=== PATIENT | female | born 1980 | race Caucasian/White ===

== ENCOUNTER 2017-05-24 09:44 | Inpatient (IN) | payer MEDICARE, MEDICAID ==
[~2017-05-24] VITALS: Ht 147.3 cm; Wt 72.3 kg
[~2017-05-24 09:44] MED LIST: BUPIVACAINE/PF 0.5% ONE; CINA60TA PO; EPINEPHRINE 1 MG/ML, 1ML ONE; ESOM40CA PO; GABA-826 PO; HYDR2TAB29 PO; LANT1000 PO; METOPOROL PO; SEVE800T7 PO; TRAZ50TA18 PO; WARF5TAB7 PO; [UNRECOGNIZED DRUG - OTHER] PO; [UNRECOGNIZED DRUG - OTHER] PO; depoprovera; lidocaine cream; losartan PO; promethazine PO
[2017-05-24] MEDS ORDERED: HYDR2TAB29 PO (10:38)
[2017-05-24] MEDS ORDERED: SODIUM CHLORIDE 0.9% 1,000 ML IV SCH (10:45)
[2017-05-24 10:53] VITALS: BP 135/91
[2017-05-24] MEDS ORDERED: FENTANYL PF 250 MCG/5ML ONE (11:02)
[2017-05-24] MEDS ORDERED: MIDAZOLAM 1 MG/ML, 2ML ONE (11:02)
[2017-05-24] MEDS ORDERED: DEXAMETHASONE 4 MG/ML, 1ML ONE ×2 (11:03)
[2017-05-24] MEDS ORDERED: PROPOFOL 10 MG/ML, 20ML ONE (11:03)
[2017-05-24] MEDS ORDERED: SUCCINYLCHOLINE 20 MG/ML, 10ML ONE (11:03)
[2017-05-24] MEDS ORDERED: ONDANSETRON 2MG/ML, 2ML ONE (11:03)
[2017-05-24 11:38] LABS: HEMATOCRIT 36.6 % (34.6-47.8); HEMOGLOBIN 12.3 g/dL (11.7-16.4); WHITE BLOOD COUNT 5.1 x10^3/uL (3.4-10)
[2017-05-24 11:52] LABS: ASPARTATE AMINO TRANSFERASE 22 U/L (15-37); BLOOD UREA NITROGEN 21 mg/dL (7-18)
[2017-05-24] MEDS ORDERED: CEFAZOLIN 1,000 MG ONE ×2 (12:37)
[2017-05-24] MEDS ORDERED: FENTANYL PF 100 MCG/2ML IV PRN (13:00)
[2017-05-24] MEDS ORDERED: PROMETHAZINE 25 MG/ML, 1ML IV PRN (13:00)
[2017-05-24] MEDS ORDERED: LABETALOL 5MG/ML, 20ML ONE (13:29)
[2017-05-24] MEDS: HYDROmorphone 1 MG/ML, 1ML IV PRN ×4 (14:52→15:30)
[2017-05-24] MEDS ORDERED: HYDROmorphone 2 MG/ML, 1ML ONE (14:57)
[2017-05-24] MEDS ORDERED: DIPHENHYDRAMINE 50 MG/ML, 1ML ONE (15:43)
[2017-05-24] MEDS ORDERED: DIPHENHYDRAMINE 50 MG/ML, 1ML IVPush ONE (16:00)
[2017-05-24 16:50] VITALS: BP 116/77
[2017-05-24] MEDS ORDERED: HEPARIN 5,000 UNITS/ML, 1ML SQ SCH (18:30)
[2017-05-24] MEDS ORDERED: hydrALAzine 20 MG/ML, 1ML IV PRN (18:30)
[2017-05-24] MEDS ORDERED: HYDROmorphone 2MG TABLET PO PRN (19:00)
[2017-05-24 19:26] LABS: IOPTH BASELINE 968 pg/mL
[2017-05-24 19:30] LABS: SAMPLE 5 %DROP IOPTH 94 %
[2017-05-24 19:55] VITALS: BP 122/85
[2017-05-24] MEDS: SODIUM CHLORIDE FLUSH 10ML SYR IVF SCH (20:58)
[2017-05-24] MEDS: CALCIUM/VITAMIN D3 250-125 TABLET PO SCH (20:58)
[2017-05-24] MEDS: CALCITRIOL 0.5 MCG CAPSULE PO SCH (20:58)
[2017-05-24] MEDS ORDERED: GABAPENTIN 100 MG CAPSULE PO SCH (21:00)
[2017-05-25] VITALS: BP 142/88
[2017-05-25] MEDS ORDERED: HYDROmorphone 1 MG/ML, 1ML ONE (00:16)
[2017-05-25] MEDS: HYDROmorphone 1 MG/ML, 1ML IV PRN ×3 (00:24→14:36)
[2017-05-25 04:05] VITALS: BP 124/85
[2017-05-25 05:31] LABS: BLOOD UREA NITROGEN 44 mg/dL (7-18)
[2017-05-25 07:25] VITALS: BP 113/79
[2017-05-25] MEDS ORDERED: PANTOPROZOLE 40MG TABLET PO SCH (07:30)
[2017-05-25] MEDS ORDERED: HEPARIN 5,000 UNITS/ML, 1ML SQ SCH (09:00)
[2017-05-25] MEDS: CALCIUM/VITAMIN D3 250-125 TABLET PO SCH (09:18)
[2017-05-25] MEDS: SEVELAMER 800MG TABLET PO SCH ×2 (09:18→12:50)
[2017-05-25] MEDS: CALCITRIOL 0.5 MCG CAPSULE PO SCH (09:18)
[2017-05-25] MEDS: SODIUM CHLORIDE FLUSH 10ML SYR IVF SCH (09:19)
[2017-05-25] MEDS ORDERED: CALC-126 PO (15:24)
[2017-05-25] MEDS ORDERED: CALC0.5C2 PO (15:25)
[2017-05-25 15:33] VITALS: BP 126/89
== END 2017-05-25 15:43 | disposition home or self-care (01) | DRG 626 ==
LOC: OUT 09:44 → 4NOR 16:46 → OUT 17:24 → 4NOR 05-25 06:53
PROVIDERS: ADMIT Surgery; ATTEND Surgery
PROC: 0GBP0ZZ Excision of Left Inferior Parathyroid Gland, Open Approach (ICD-10-PCS; principal; 2017-05-24 12:00)
DX: D35.1 Benign neoplasm of parathyroid gland (principal); N25.81 Secondary hyperparathyroidism of renal origin
CPT/HCPCS: 36415; 80048; 80053; 82040; 82310; 83970; 84703; 85025; 85610; 85730; 88304; 88305; 88331; J0171; J0690; J1100; J1170; J2250; J2405; J2704; J3010; J3490; C1760; J0330; J1200; J7030

== ENCOUNTER → 2018-05-12 | Outpatient (CLI) | payer MEDICARE, MEDICAID ==
[~2018-05-12] MED LIST changes: -BUPIVACAINE/PF 0.5% ONE; +CALC-126 PO; +CALC0.5C2 PO; -EPINEPHRINE 1 MG/ML, 1ML ONE; +PREG75CA PO; +PROM12.55 PO; +TRAZ-136 PO; -TRAZ50TA18 PO; +VENL75TA2 PO; +WARF-36 PO; -WARF5TAB7 PO
[2018-05-12 15:42] LABS: PROTHROMBIN TIME 10.3 Seconds (9.6-11.5)
[2018-05-12 15:46] LABS: ALANINE AMINOTRANSFERASE 24 U/L (12-78); ALBUMIN 3.6 g/dL (3.4-5.0); ANION GAP 12 mmol/L (5-15); CALCIUM 7.4 mg/dL (8.5-10.1); CHLORIDE 102 mmol/L (98-107); CREATININE 7.55 mg/dL (0.55-1.02)
[2018-05-12 15:47] LABS: BASOPHILS # (AUTO) 0.03 x10^3/uL (0-0.1); BASOPHILS % (AUTO) 1 % (0-1); EOSINOPHILS # (AUTO) 0.07 x10^3/uL (0-0.4); EOSINOPHILS % (AUTO) 2 % (1-7); LYMPHOCYTES # (AUTO) 1.58 x10^3/uL (1-3.4); LYMPHOCYTES % (AUTO) 35 % (22-44); MD NO; MEAN CORPUSCULAR HEMOGLOBIN 30.6 pg (27.0-34.8); MEAN CORPUSCULAR HGB CONC 33.1 g/dL (32.4-35.8); MEAN CORPUSCULAR VOLUME 92.5 fL (80-100); MEAN PLATELET VOLUME 9.3 fL (7.4-10.4); MONOCYTES # (AUTO) 0.48 x10^3/uL (0.2-0.8); MONOCYTES % (AUTO) 11 % (2-9); NEUTROPHILS % (AUTO) 53 % (42-75); PLATELET COUNT 128 x10^3/uL (130-400); RED BLOOD COUNT 4.02 x10^6/uL (3.82-5.3); RED CELL DISTRIBUTION WIDTH 14.7 % (9.6-15.2)
[2018-05-12 15:49] LABS: ALKALINE PHOSPHATASE 78 U/L (45-117); BILIRUBIN,TOTAL 0.4 mg/dL (0.2-1.0); TOTAL PROTEIN 7.5 g/dL (6.4-8.2)
== END | disposition home or self-care (01) ==
LOC: STAR 14:31
PROVIDERS: ATTEND Obstetrics & Gynecology
DX: Z01.818 Encounter for other preprocedural examination (principal); N93.9 Abnormal uterine and vaginal bleeding, unspecified; Z88.1 Allergy status to other antibiotic agents
CPT/HCPCS: 36415; 71046; 80053; 85025; 85610; 85730; 93005

== ENCOUNTER 2018-05-19 13:32 | Observation (INO) | payer MEDICARE, MEDICAID ==
[~2018-05-19] VITALS: Ht 148.6 cm; Wt 73.7 kg
[~2018-05-19 13:32] MED LIST changes: +FENTANYL PF 100 MCG/2ML ONE; +LIDOCAINE-MPF 2% ,5ML ONE; +MIDAZOLAM 1 MG/ML, 2ML ONE; +PROPOFOL 10 MG/ML, 20ML ONE; +SUCCINYLCHOLINE 20 MG/ML, 10ML ONE
[2018-05-19] MEDS ORDERED: SODIUM CHLORIDE 0.9% 1,000 ML IV SCH (13:42)
[2018-05-19 14:14] VITALS: BP 118/81
[2018-05-19] MEDS ORDERED: LACTATED RINGERS 1,000 ML IV SCH (14:23)
[2018-05-19] MEDS ORDERED: BUPIVACAINE 0.25% ONE (15:09)
[2018-05-19] MEDS ORDERED: SILVER NITRATE STICK TP ONE (15:10)
[2018-05-19] MEDS ORDERED: CEFAZOLIN 1,000 MG ONE (15:36)
[2018-05-19 16:01] LABS: INTERNATIONAL NORMALIZED RATIO 0.98 (0.93-1.1); PROTHROMBIN TIME 10.1 Seconds (9.6-11.5)
[2018-05-19] MEDS ORDERED: PROMETHAZINE 25 MG/ML, 1ML IV PRN (16:30)
[2018-05-19] MEDS ORDERED: LABETALOL 5MG/ML, 20ML IV PRN (16:30)
[2018-05-19] MEDS ORDERED: MIDAZOLAM 1 MG/ML, 2ML IV PRN (16:30)
[2018-05-19] MEDS ORDERED: ALBUTEROL SULFATE 2.5 MG/3 ML NPPB PRN (16:30)
[2018-05-19] MEDS ORDERED: FENTANYL PF 100 MCG/2ML ONE (16:46)
[2018-05-19] MEDS ORDERED: MEPERIDINE/PF 50 MG/ML ONE (16:46)
[2018-05-19] MEDS: FENTANYL PF 100 MCG/2ML IV PRN ×2 (16:51→17:07)
[2018-05-19] MEDS: MEPERIDINE/PF 25MG/0.5ML IVPush PRN ×2 (16:51→17:09)
[2018-05-19] MEDS ORDERED: HYDROmorphone 2 MG/ML, 1ML IVPush PRN (17:00)
[2018-05-19] MEDS ORDERED: HYDROmorphone 2MG TABLET PO ONE (17:00)
[2018-05-19] MEDS ORDERED: ONDANSETRON 2MG/ML, 2ML IVPush PRN (17:00)
[2018-05-19] MEDS ORDERED: PROMETHAZINE 25MG TABLET PO PRN (18:30)
[2018-05-20] MEDS ORDERED: VENLAFAXINE 75 MG CAP ER PO SCH (09:00)
[2018-05-20] MEDS ORDERED: PREGABALIN 75 MG CAPSULE PO SCH (09:00)
[2018-05-20] MEDS ORDERED: WARFARIN 5 MG TABLET PO-COUM SCH (18:00)
== END 2018-05-19 19:01 | disposition home or self-care (01) ==
LOC: OR 13:32 → ORIP 16:44 → 4NOR 18:00
PROVIDERS: ADMIT Obstetrics & Gynecology; ATTEND Obstetrics & Gynecology
DX: N93.9 Abnormal uterine and vaginal bleeding, unspecified (principal); N18.6 End stage renal disease; Z88.8 Allergy status to other drugs, medicaments and biological substances; Z79.899 Other long term (current) drug therapy; Z98.890 Other specified postprocedural states; Z99.2 Dependence on renal dialysis; Z80.9 Family history of malignant neoplasm, unspecified
CPT/HCPCS: 36415; 58563; 80047; 84703; 85610; 85730; G0378; J0330; J0690; J2175; J2250; J2704; J3010; J3490